=== PATIENT | female | born 1945 | race Caucasian/White ===

== ENCOUNTER → 2022-10-22 | Outpatient (CLI) | payer OTHER, SELFPAY | END | disposition home or self-care (01) | LOC: PSN 07:45 | PROVIDERS: Referring Provider Otolaryngology; Visit Provider Otolaryngology | DX: Z01.818 Encounter for other preprocedural examination (principal); R22.1 Localized swelling, mass and lump, neck | CPT/HCPCS: 87635; C9803; U0003; U0005 ==